=== PATIENT | female | born 1980 | race Two or more races ===

== ENCOUNTER 2016-11-03 22:46 | Emergency (ER) | payer OTHER, MEDICAID ==
[~2016-11-03 22:46] MED LIST: BENTYL20 M1 PO; CIPRO500 MG PO; COLACE100 M1 PO; MICROGESTIN 211 EAC1 PO; NORCO 5/325 TAB1 TAB PO; OMEPRAZOLE20 M3 PO
[2017-01-18] MEDS ORDERED: [UNRECOGNIZED DRUG - OTHER] DT (17:39)
[2017-02-18] MEDS ORDERED: BACTRIM DS TAB1 EAC2 PO (23:59)
[2017-02-25] MEDS ORDERED: KEFLEX500 M4 PO (14:28)
[2017-02-25] MEDS ORDERED: HYDROCODON-ACE1 EA16 PO (14:29)
[2017-02-25] MEDS ORDERED: SULFAMYLON SOL250 M1 TOP (14:31)
[2017-03-11] MEDS ORDERED: IBUPROFEN200 M2 PO (09:48)
== END 2016-11-03 22:50 ==
LOC: EDMED 22:46
DX: K12.1 Other forms of stomatitis (principal); K13.0 Diseases of lips